=== PATIENT | female | born 1960 | race Caucasian/White ===

== ENCOUNTER → 2017-11-04 | Outpatient (CLI) | payer BC ==
[~2017-11-04] MED LIST: ASPI-435 PO; BYS/5 PO; GADAVIST IV PRN
--- NOTE | 2017-11-04 14:18 | DIAGNOSTIC IMAGING REPORT ---
LUMBAR SPINE COMBINATION CLINICAL HISTORY: 57 years-old Female presenting with LUMBAR RADICULOPATHY, lower back pain, bilateral foot and ankle pain greater on the right. TECHNIQUE: Multisequence, multiplanar MR imaging of the lumbar spine was performed before and after the administration of intravenous contrast. IV contrast: 10.5 mL of Gadavist. COMPARISON: None. FINDINGS: Localizer images: Unremarkable. Normal lumbar lordosis. The spinal canal may be narrow on a developmental basis. Fatty endplate changes evident at L4-5 (Modic type II). Severe intervertebral disc height loss at L4-5. Fatty endplate changes also evident in the lower thoracic spine at T11-12. The remaining vertebral bodies demonstrate normal height, alignment, and bone marrow signal intensity. Remaining intervertebral discs do not demonstrate significant height loss though there is desiccation at L3-4. Additional degenerative changes further detailed below: L1-2: No significant neural foraminal or spinal canal narrowing. L2-3: Facet arthropathy results in mild bilateral neural foraminal narrowing. No second spinal canal narrowing. L3-4: Disc bulge, ligamentum flavum hypertrophy, and mild facet arthropathy do not significantly narrow the spinal canal. However, mild bilateral neural foraminal narrowing evident. The disc bulge results in slightly greater effacement of the far right lateral neural foramen (series 5 image 14). This exerts mass effect on the exiting right L3 nerve root. L4-5: Small disc osteophyte complex does not significantly narrow the spinal canal. More significant facet arthropathy results in moderate right and moderate to severe left neural foraminal narrowing. Abutment of the exiting left L4 nerve root suspected. L5-S1: No significant neural foraminal or spinal canal narrowing. Spinal cord is in good position at L1. Cauda equina normal morphology. Paraspinal musculature normal. No epidural collection. Postcontrast imaging does not demonstrate abnormal enhancement of the cauda equina or spinal cord. No osseous lesion. No abscess. IMPRESSION: 1. Multilevel degenerative changes with neural foraminal narrowing most significant at L4-5. Suspected abutment of the exiting left L4 nerve root as a result of facet arthropathy. More significantly, disc bulge at L3-4 has greater effacement of the far right lateral neural foramen, resulting in mass effect on the exiting right L3 nerve root. Additional degenerative changes as above. 2. No abnormal enhancement. Electronically signed by: Gilmar Jay M.D. 11/04/2017 2:16 PM Dictated Date/Time: 11/04/2017 2:07 PM
== END | disposition home or self-care (01) ==
LOC: C.MRIBC 12:53
PROVIDERS: ATTEND Physician Assistant Medical
DX: M51.16 Intervertebral disc disorders with radiculopathy, lumbar region (principal); M47.26 Other spondylosis with radiculopathy, lumbar region; M48.061 Spinal stenosis, lumbar region without neurogenic claudication